=== PATIENT | male | born 2000 | race African-American/Black ===

== ENCOUNTER 2020-12-08 23:16 | Emergency (ER) | payer SELFPAY ==
--- NOTE | 2020-12-08 23:21 | PC.NURSE ---
Pt arrived c friends c/o I think I'm having a heart attack . spinning and unable to sit still. reports drinking etoh and smoking marijuana tonight. pt tachy on arrival at 137. reports cp x 1 hour. to room 10.
[2020-12-08 23:23] VITALS: BP 146/79; PULSE 123; RESP 24; TEMP 35.9; O2SAT 100
[2020-12-08] MEDS: SODIUM CHLORIDE 0.9% IV 1,000 ML 999 ML IV CONT (23:53)
[2020-12-08] MEDS: ONDANSETRON INJ 4 MG/2 ML VIAL IV PUSH (23:53)
[2020-12-09 00:30] LABS: Ethanol 29 mg/dL (<10)
[2020-12-09 00:31] LABS: Alanine Aminotransferase 18 U/L (4-50); Albumin Level 4.9 g/dL (3.5-5.1); Alkaline Phosphatase 72 U/L (38-126); Anion Gap 18 mmol/L (8-16); Aspartate Amino Transferase 23 U/L (17-59); Bilirubin,Total 0.2 mg/dL (0.2-1.3); Blood Urea Nitrogen 7 mg/dL (9-20); Calcium 9.4 mg/dL (8.4-10.2); Carbon Dioxide 24 mmol/L (22-30); Chloride 101 mmol/L (98-107); Estimated CRCL calculation 94 ml/min; Estimated Glomerular Filt Rate > 60; Glucose 161 mg/dL (65-110); Lipase 57 U/L (23-300); Potassium 3.1 mmol/L (3.4-5.0); Sodium 143 mmol/L (137-145)
[2020-12-09 00:39] VITALS: BP 120/76; PULSE 93; RESP 17; O2SAT 100
[2020-12-09 00:46] LABS: Basophils Absolute Auto 0.1 K/mm3 (0.0-0.1); Basophils Percent Auto 0.5 % (0.2-1.2); Eosinophils Percent Auto 0.4 % (0-4.4); Hematocrit 44.4 % (42.0-52.0); Hemoglobin 14.9 g/dL (14.0-18.0); Immature Granulocyte Absolute 0.03 K/mm3 (0.00-0.031); Immature Granulocyte Percent A 0.3 % (0-0.5); Lymphocytes Absolute Auto 4.38 K/mm3 (0.9-3.2); Lymphocytes Percent Auto 45.9 % (18.3-44.2); Mean Corpuscular HGB Conc 33.6 g/dl (32-36); Mean Corpuscular Hemoglobin 31.9 pg (26-34); Mean Corpuscular Volume 95.1 fl (80-100); Mean Platelet Volume 10.4 fl (7.4-10.4); Monocytes Absolute Auto 0.9 K/mm3 (0.1-0.6); Monocytes Percent Auto 9.1 % (2.6-8.5); Neutrophils Absolute Auto 4.2 K/mm3 (1.3-6.7); Neutrophils Percent Auto 43.8 % (45.5-73.1); Platelet Count Result 271 k/mm3 (150-375); Red Blood Count 4.67 M/mm3 (4.6-6.20); White Blood Count 9.6 K/mm3 (4.5-10.0)
--- NOTE | 2020-12-09 01:48 | ED.GENADULT ---
HPI - General Adult General Chief complaint: Arrhythmia/Palpitations Stated complaint: intoxicated Time Seen by Provider: 12/08/20 23:35 History of Present Illness HPI narrative: Patient is a 20-year-old male who presents ER with nausea and vomiting and palpitations. Patient reports he was at a constitution party. He had headache glasses sangria but had also been smoking off of the bong. Reports she has history of using marijuana does not typically react like this. He is very nauseated actively vomiting. No actual pain. Related Data Allergies Allergy/AdvReac Type Severity Reaction Status Date / Time No Known Allergies Allergy Verified 12/08/20 23:30 Review of Systems Review of Systems: All systems reviewed & are unremarkable except as noted in HPI and below Constitutional: Constitutional: Denies chills, Denies fever(s) and Denies weakness ENT: Denies nasal congestion and Denies sore throat Cardiovascular: Cardiovascular: Denies chest pain, Reports rapid heart rate and Denies radiating jaw, neck or arm pain Respiratory: Respiratory: Denies cough, Reports dyspnea and Denies wheezing Gastrointestinal: Gastrointestinal: Denies abdominal pain, Denies diarrhea, Reports nausea and Reports vomiting Psychiatric: Psychiatric: Reports anxiety PMFSH Past Medical History Medical History (Updated 12/09/20 @ 05:26 by Bladimir Ling MD) Healthy adult male Surgical History Surgical History (Updated 12/09/20 @ 03:08 by Bladimir Ling MD) No history of previous surgery Social History Social History (Updated 12/09/20 @ 03:08 by Bladimir Ling MD) Alcohol intake: current Substance use type: marijuana Exam Narrative: GENERAL: Ill-appearing, well-nourished, and actively vomiting. HEAD: Normocephalic, atraumatic. EYES: PERRL and EOMI. ENT: Mucous membranes moist. CHEST: Clear to auscultation. No respiratory distress. HEART: Tachycardic regular. Normal peripheral pulses. ABDOMEN: Soft, nontender, nondistended. EXTREMITIES: Normal range of motion. No edema. SKIN: Warm, dry, no rash. NEURO: Alert and oriented x3. Course Course Emergency Course: Patient markedly improved with fluids and Zofran. No longer vomiting. He is actually eating. We will let him rest and then call his friend to pick him up and take him home. Vital Signs Vital signs: Vital Signs Temperature 96.7 F L 12/08/20 23:23 Pulse Rate 123 H 12/08/20 23:23 Respiratory Rate 24 H 12/08/20 23:23 Blood Pressure 146/79 H 12/08/20 23:23 Pulse Oximetry 100 12/08/20 23:23 Temperature 96.7 F L 12/08/20 23:23 Pulse Rate 54 L 12/09/20 05:08 Respiratory Rate 13 12/09/20 05:08 Blood Pressure 113/81 12/09/20 05:08 Pulse Oximetry 99 12/09/20 05:08 Medical Decision Making Vital Signs Vital Signs: Vital Signs Temperature 96.7 F L 12/08/20 23:23 Pulse Rate 123 H 12/08/20 23:23 Respiratory Rate 24 H 12/08/20 23:23 Blood Pressure 146/79 H 12/08/20 23:23 Pulse Oximetry 100 12/08/20 23:23 Temperature 96.7 F L 12/08/20 23:23 Pulse Rate 54 L 12/09/20 05:08 Respiratory Rate 13 12/09/20 05:08 Blood Pressure 113/81 12/09/20 05:08 Pulse Oximetry 99 12/09/20 05:08 Lab Data Result diagrams: 12/08/20 23:55 12/08/20 23:55 Labs: Lab Results 12/08/20 12/08/20 12/08/20 Range/Units 23:55 23:55 23:55 WBC 9.6 (4.5-10.0) K/mm3 RBC 4.67 (4.6-6.20) M/mm3 Hgb 14.9 (14.0-18.0) g/dL Hct 44.4 (42.0-52.0) % MCV 95.1 (80-100) fl MCH 31.9 (26-34) pg MCHC 33.6 (32-36) g/dl RDW 12.0 (11.5-14.5) % Plt Count 271 (150-375) k/mm3 MPV 10.4 (7.4-10.4) fl Immature Gran % (Auto) 0.3 (0-0.5) % Neut % (Auto) 43.8 L (45.5-73.1) % Lymph % (Auto) 45.9 H (18.3-44.2) % [place] % (Auto) 9.1 H (2.6-8.5) % Eos % (Auto) 0.4 (0-4.4) % Baso % (Auto) 0.5 (0.2-1.2) % Lymph # (Auto) 4.38 H (0.9-3.2) K/mm3 [place] # (Auto)
[2020-12-09 02:12] VITALS: BP 114/66; PULSE 66; RESP 14; O2SAT 99
[2020-12-09 03:48] VITALS: BP 118/82; PULSE 60; RESP 13; O2SAT 100
[2020-12-09 05:08] VITALS: BP 113/81; PULSE 54; RESP 13; O2SAT 99
== END 2020-12-09 05:37 | disposition home or self-care (01) ==
PROVIDERS: Emergency Provider Emergency Medicine
DX: R11.2 Nausea with vomiting, unspecified (principal)
CPT/HCPCS: 36415; 80053; 80307; 83690; 85025; 96361; 96374; 99284; J2405; J7030